=== PATIENT | male | born 1955 | race African-American/Black ===

== ENCOUNTER 2020-01-09 08:59 | Inpatient (IN) ==
[2020-01-09] MEDS ORDERED: DEXTROSE 50% 25 GM/50 ML VIAL IV PRN (13:47)
[2020-01-09] MEDS ORDERED: ONDANSETRON 4 MG/2 ML VIAL IV PRN (13:47)
[2020-01-09] MEDS ORDERED: GLUCAGON 1 MG VIAL IM PRN (13:47)
[2020-01-09] MEDS ORDERED: ACETAMINOPHEN 325 MG TABLET PO PRN (13:47)
[2020-01-09] MEDS ORDERED: ALBUTEROL 2.5 MG/3 ML NEB RESP TX PRN (13:55)
[2020-01-09 15:56] LABS: Basophils % 0.3 % (0.0-0.8); Eosinophils % 0.4 % (0.00-10.9); Hematocrit 43.9 VOL% (42.0-52.0); Hemoglobin 13.5 GM/DL (14.0-18.0); Immature Granulocytes % 0.4 %; Immature Granulocytes Absolute 0.03 #; Lymphocytes # 1.2 10*3/uL (1.4-4.0); Lymphocytes % 15.6 % (21.2-54.2); Mean Corpuscular HGB Conc 30.8 GM/DL (32-36); Mean Corpuscular Volume 87.6 FL (87-102); Mean Platelet Volume 11.4 FL (9.6-12.0); Monocytes % 5.3 % (1.7-12.7); Platelet Count 148 T/CUMM (130-400); Red Blood Count 5.01 MC/CUMM (3.8-5.5); Red Cell Distribution Width 13.5 % (9.3-17.3); White Blood Count 7.9 T/CUMM (4-12)
[2020-01-09 16:09] LABS: Albumin 3.1 G/DL (3.4-5.0); Bilirubin,Total 0.8 MG/DL (0.2-1.0); Calcium 9.3 MG/DL (8.5-10.1); Osmolality,Calculated 262.7 MOS/KG (273-304)
[2020-01-09] MEDS: SODIUM HYPOCHLORITE 0.25% IRRIG 473 ML BOTTLE TOP SCH (16:37)
[2020-01-09] MEDS: PIPERACILLIN/TAZOBACTAM 3,375 MG in SODIUM CHLORIDE 0.9% 100 ML IV SCH ×2 (16:37→21:30)
[2020-01-09 17:09] LABS: Platelet Estimate Adequate
[2020-01-09] MEDS: cilostazoL 100 MG TABLET PO SCH (21:11)
[2020-01-10] MEDS: PIPERACILLIN/TAZOBACTAM 3,375 MG in SODIUM CHLORIDE 0.9% 100 ML IV SCH ×3 (05:44→22:50)
[2020-01-10 06:47] LABS: Basophils % 0.5 % (0.0-0.8); Eosinophils # 0.1 10*3/uL (0.0-0.87); Hematocrit 39.7 VOL% (42.0-52.0); Hemoglobin 12.6 GM/DL (14.0-18.0); Immature Granulocytes % 0.5 %; Immature Granulocytes Absolute 0.04 #; Lymphocytes # 1.8 10*3/uL (1.4-4.0); Lymphocytes % 22.7 % (21.2-54.2); Mean Corpuscular HGB Conc 31.7 GM/DL (32-36); Mean Corpuscular Volume 85.2 FL (87-102); Mean Platelet Volume 11.8 FL (9.6-12.0); Monocytes % 8.2 % (1.7-12.7); Neutrophils % 67.1 % (38.7-73.9); Platelet Count 147 T/CUMM (130-400); Red Blood Count 4.66 MC/CUMM (3.8-5.5); Red Cell Distribution Width 13.5 % (9.3-17.3); White Blood Count 7.9 T/CUMM (4-12)
[2020-01-10 07:38] LABS: Albumin 2.8 G/DL (3.4-5.0); Bilirubin,Total 0.5 MG/DL (0.2-1.0); Calcium 8.6 MG/DL (8.5-10.1); Osmolality,Calculated 261.7 MOS/KG (273-304); Risk Ratio 2.96; Thyroid Stimulating Hormone 1.82 uIU/ml (0.358-3.74); Total Protein 7.3 G/DL (6.4-8.3)
[2020-01-10 07:51] LABS: Folate 10.2 NG/ML (5.4-24.0)
[2020-01-10 07:54] LABS: Apearance,Urine CLEAR (Clear); Bilirubin,Urine Negative (Negative); Blood, Urine Negative (Negative); Glucose,Urine (UA) Negative (Negative); Ketones,Urine Negative (Negative); Nitrite,Urine Negative (Negative); Protein,Urine Negative; RBC,Urine 4 /HPF (0-4); Sperm,Urine Occasional /HPF (Negative); Squamous Epithelial Cell,Urine Occasional /HPF (0-10); Urine Color Yellow (Yellow); Urine Urobilinogen < 2.0 EU/DL (0.2-1.0); WBC,Urine 4 /HPF (0-6)
[2020-01-10] MEDS: MELOXICAM 7.5 MG TABLET PO SCH (09:29)
[2020-01-10] MEDS: DILTIAZEM CD 240 MG CAPSULE PO SCH (09:29)
[2020-01-10] MEDS: FOLIC ACID 1 MG TABLET PO SCH (09:29)
[2020-01-10] MEDS: NICOTINE 14 MG/24 HR PATCH TRANSDERM SCH (09:29)
[2020-01-10] MEDS: TRIAMTERENE/HCTZ 37.5-25 MG CAPSULE PO SCH (09:29)
[2020-01-10] MEDS: METOPROLOL SUCCINATE XL 100 MG TABLET PO SCH (09:30)
[2020-01-10] MEDS: FUROSEMIDE 40 MG TABLET PO SCH (09:30)
[2020-01-10] MEDS: PANTOPRAZOLE 40 MG TABLET PO SCH (09:30)
[2020-01-10] MEDS: MULTIVITAMIN (CENTRUM) TABLET PO SCH (09:30)
[2020-01-10] MEDS: cilostazoL 100 MG TABLET PO SCH ×2 (09:30→20:27)
[2020-01-10] MEDS: THIAMINE 100 MG TABLET PO SCH (09:30)
[2020-01-10] MEDS: SODIUM HYPOCHLORITE 0.25% IRRIG 473 ML BOTTLE TOP SCH (09:31)
[2020-01-11] MEDS: PIPERACILLIN/TAZOBACTAM 3,375 MG in SODIUM CHLORIDE 0.9% 100 ML IV SCH (05:32)
[2020-01-11 07:25] LABS: Basophils % 0.5 % (0.0-0.8); Eosinophils # 0.1 10*3/uL (0.0-0.87); Hematocrit 40.7 VOL% (42.0-52.0); Hemoglobin 12.6 GM/DL (14.0-18.0); Immature Granulocytes % 0.4 %; Immature Granulocytes Absolute 0.03 #; Lymphocytes # 1.6 10*3/uL (1.4-4.0); Lymphocytes % 19.9 % (21.2-54.2); Mean Corpuscular Volume 86.6 FL (87-102); Mean Platelet Volume 11.6 FL (9.6-12.0); Monocytes % 10.6 % (1.7-12.7); Neutrophils % 67.6 % (38.7-73.9); Platelet Count 149 T/CUMM (130-400); Red Cell Distribution Width 13.4 % (9.3-17.3); White Blood Count 7.8 T/CUMM (4-12)
[2020-01-11 07:56] VITALS: BP 113/72
[2020-01-11] MEDS: METOPROLOL SUCCINATE XL 100 MG TABLET PO SCH (08:46)
[2020-01-11] MEDS: MELOXICAM 7.5 MG TABLET PO SCH (08:47)
[2020-01-11] MEDS: MULTIVITAMIN (CENTRUM) TABLET PO SCH (08:47)
[2020-01-11] MEDS: cilostazoL 100 MG TABLET PO SCH (08:47)
[2020-01-11] MEDS: DILTIAZEM CD 240 MG CAPSULE PO SCH (08:48)
[2020-01-11] MEDS: TRIAMTERENE/HCTZ 37.5-25 MG CAPSULE PO SCH (08:48)
[2020-01-11] MEDS: FUROSEMIDE 40 MG TABLET PO SCH (08:49)
[2020-01-11] MEDS: FOLIC ACID 1 MG TABLET PO SCH (08:49)
[2020-01-11] MEDS: PANTOPRAZOLE 40 MG TABLET PO SCH (08:49)
[2020-01-11] MEDS: NICOTINE 14 MG/24 HR PATCH TRANSDERM SCH (08:50)
[2020-01-11] MEDS: THIAMINE 100 MG TABLET PO SCH (08:50)
[2020-01-11] MEDS: SODIUM HYPOCHLORITE 0.25% IRRIG 473 ML BOTTLE TOP SCH (08:55)
== END 2020-01-10 12:00 | disposition home health service (06) | DRG 204 ==
LOC: N.TELEN 10:37 → SUATTDRO 10:37
PROVIDERS: ADMIT Internal Medicine; ATTEND Internal Medicine Geriatric Medicine